=== PATIENT | female | born 1980 | race African-American/Black ===

== ENCOUNTER 2019-02-16 06:46 | Inpatient (IN) | payer OTHER ==
--- NOTE | 2019-02-10 11:02 | HPE ---
DATE OF ADMISSION: 02/16/2019 This lady is a 38-year-old, 3, para 1, who is admitted for elective repeat section because of previous history of a macrosomic 4.8 kg and scar integrity is unknown. Her past history is in April of 2017 at term a section because of macrosomia, hypertension, and there is no op report and no idea of integrity of the scar. In February of 2017, she had an early spontaneous at 8 weeks. Her medications are vitamins and ASA. She has NO KNOWN ALLERGIES. On examination today, symphysis fundus height is 38, vertex presenting. heart activity is noted. Incision is clean and dry. The rest the examination is unremarkable. She has a category 1 strip. Normocephalic, atraumatic. Neck full range of motion. Pupils equal and reactive to light. Distal pulses symmetric. No evidence of deep venous thrombosis (DVT), pulmonary embolism (PE), or superficial phlebitis. Chest is clear bilaterally to bases. No wheezes or rhonchi. No costovertebral angle (CVA) tenderness. Abdomen is soft. Four quadrant bowel sounds are noted. Incision is noted. She has no rashes, lesions, or pruritus. No arthralgia or myalgia. No complaint of joint pain. No complaint of cough, wheeze, shortness of breath, or dyspnea on exertion. No bleeding. Neuro complete. No incontinency, urgency, or frequency. No nausea, vomiting, diarrhea, or constipation. She has no diabetic issues. PAST GYNECOLOGICAL HISTORY: Unremarkable. FAMILY HISTORY: Noncontributory. SURGICAL HISTORY: section. She does not smoke, drink, abuse drugs. She is to a soldier. No domestic violence and good support. Her lab work shows that she is A+, HIV negative, hepatitis negative, RPR negative, rubella immune. Varicella immune. Urine is negative. Gonorrhea and Chlamydia are negative. 1-hour glucose was 71. GBS status is unknown at the present time. Her blood pressure today is 124/68, respirations are 18, pulse is 72, and she is afebrile. Her body mass index (BMI) is 24.0, and she has gained approximately 18 pounds in this . We discussed the risks and benefits of section including hemorrhage, infection, perforation, , reoperation, remote possibility of hysterectomy, remote possibility of laceration, remote possibility of entering the intensive care unit (NICU). The patient expressed understanding. Both her and agree, signed and witnessed the consent form. Patient is booked for elective repeat section 02/16/2019 at 0730 hours in the morning. All questions were answered. 40-minute discussion in both languages Trin[place] and Yoruba. BUTCH
[~2019-02-16] VITALS: Ht 162.6 cm; Wt 76.6 kg
[2019-02-16] VITALS (7 sets, daily range): BP systolic 122–129; BP diastolic 60–81
[~2019-02-16 06:46] MED LIST: PRENTAB55 PO
[2019-02-16] MEDS ORDERED: BICITRA 30ML SOLN UDC PO ONE (07:15)
[2019-02-16] MEDS ORDERED: AZITHROMYCIN INJ 500 MG, VIAL MATE ADAPTER 1 EACH in D5W 250 ML IV ONE (07:15)
[2019-02-16] MEDS ORDERED: LR 1,000 ML IV SCH ×2 (07:15→11:57)
[2019-02-16] MEDS ORDERED: BUPIVACAINE HCL 0.25% 10 ML VIAL SC ONE (07:15)
[2019-02-16] MEDS ORDERED: LR 1,000 ML IV ONE (07:15)
[2019-02-16] MEDS ORDERED: ACETAMINOPHEN 650 MG SUPP PR ONE (07:45)
[2019-02-16 08:41] LABS: HEMATOCRIT 35.6 % (36.0-47.0); HEMOGLOBIN 11.7 g/dl (12.0-15.5); MEAN CORPUSCULAR HEMOGLOBIN 31.2 pg (27.0-33.0); MEAN CORPUSCULAR HGB CONC 32.9 g/dl (32.0-36.5); MEAN CORPUSCULAR VOLUME 94.9 fl (80.0-96.0); PLATELET COUNT, AUTOMATED 145 10^3/uL (150-450); RED BLOOD COUNT 3.75 10^6/uL (4.00-5.40); WHITE BLOOD COUNT 6.1 10^3/uL (4.0-10.0)
[2019-02-16] MEDS ORDERED: OXYTOCIN INJ 10 UNITS/ML VIAL (J2590) As Ordered ONE (09:58)
[2019-02-16] MEDS ORDERED: dexameTHASONE 4 MG/ML 1ML VIAL (J1100) As Ordered ONE (09:58)
[2019-02-16] MEDS ORDERED: ONDANSETRON 4MG/2ML VIAL (J2405) As Ordered ONE (09:58)
[2019-02-16] MEDS ORDERED: fentaNYL 100 MCG/2 ML INJECTION (J3010) As Ordered ONE (09:59)
[2019-02-16] MEDS ORDERED: MORPHINE PRES-FREE INJ 10 MG/10 ML VIAL (J2274) As Ordered ONE (09:59)
[2019-02-16] MEDS ORDERED: NALOXONE INJ 0.4 MG/1 ML VIAL (J2310) IV PRN ×2 (10:36)
[2019-02-16] MEDS ORDERED: NALBUPHINE HCL 10 MG/ML AMP (J2300) IV PRN (10:36)
[2019-02-16] MEDS ORDERED: diphenhydrAMINE INJ 50MG/ML VIAL (J1200) IV PRN ×2 (10:36→12:30)
[2019-02-16] MEDS ORDERED: ONDANSETRON 4MG/2ML VIAL (J2405) IV PRN ×2 (10:36→12:30)
[2019-02-16] MEDS ORDERED: METOCLOPRAMIDE INJ 10MG/2ML VIAL (J2765) IV PRN (10:36)
[2019-02-16 11:25] LABS: CORD GAS ABE A -5.1; CORD GAS O2 SAT A 30.5 %; CORD GAS PCO2 A 86.8 mmHg; CORD GAS PH A 7.111 UNITS; CORD GAS PO2 A 21.8 mmHg; CORD GAS SBC A 18.7 MEQ/L; CORD GAS TCO2 A 29.7 MEQ/L
[2019-02-16 11:26] LABS: CORD GAS ABE V -6.2; CORD GAS HCO3 V 22.2 MEQ/L; CORD GAS O2 SAT V 65.1 %; CORD GAS PCO2 V 55.3 mmHg; CORD GAS PH V 7.222 UNITS; CORD GAS PO2 V 33.3 mmHg; CORD GAS SBC V 18.7 MEQ/L; CORD GAS TCO2 V 23.9 MEQ/L
[2019-02-16] MEDS ORDERED: ePHEDrine SULFATE 25 MG/5 ML(5MG/ML) SYRINGE As Ordered ONE (11:47)
[2019-02-16] MEDS ORDERED: OXYTOCIN DRIP 30 UNITS in APPROPRIATE DILUENT 1 EA IV SCH (11:57)
[2019-02-16] MEDS ORDERED: MOM 30ML SUSPENSION UDC PO PRN (12:00)
[2019-02-16] MEDS ORDERED: ANUSOL HC CREAM 30GM TOP PRN (12:00)
[2019-02-16] MEDS ORDERED: ACETAMINOPHEN 500 MG TAB PO PRN (12:00)
[2019-02-16] MEDS ORDERED: MEASLES,MUMPS,RUBELLA VACCINE INJ (MMR-II) (90707) SC SCH (12:00)
[2019-02-16] MEDS ORDERED: RHOGAM 300 MCG (1500 IU) INJ (J2790) IM SCH (12:00)
[2019-02-16] MEDS ORDERED: PERCOCET 5MG/325MG TAB PO PRN (12:00)
[2019-02-16] MEDS ORDERED: OXYTOCIN INJ 10 UNITS/ML VIAL (J2590) IV ONE (12:00)
[2019-02-16] MEDS ORDERED: DOCUSATE SODIUM 100 MG CAP PO PRN (12:00)
[2019-02-16] MEDS ORDERED: fentaNYL 100 MCG/2 ML INJECTION (J3010) IV PRN (12:30)
[2019-02-16] MEDS ORDERED: OXYTOCIN 30 UNITS IN 0.9% NaCl 500ML IV BAG (J2590) As Ordered ONE (12:52)
[2019-02-16] MEDS: KETOROLAC 30 MG/ML VIAL (J1885) IV SCH (18:26)
[2019-02-17] MEDS: KETOROLAC 30 MG/ML VIAL (J1885) IV SCH ×2 (00:28→06:03)
[2019-02-17 02:00] VITALS: BP 119/63
[2019-02-17 06:00] VITALS: BP 111/66
[2019-02-17 06:50] LABS: HEMATOCRIT 27.9 % (36.0-47.0); MEAN CORPUSCULAR HEMOGLOBIN 31.7 pg (27.0-33.0); MEAN CORPUSCULAR VOLUME 96.2 fl (80.0-96.0); PLATELET COUNT, AUTOMATED 115 10^3/uL (150-450); WHITE BLOOD COUNT 8.5 10^3/uL (4.0-10.0)
[2019-02-17 06:52] LABS: HEMOGLOBIN 9.2 g/dl (12.0-15.5)
[2019-02-17] MEDS: PRENATAL VITAMINS CHEWABLE TABLET PO SCH (07:57)
[2019-02-17] MEDS: PERCOCET 5MG/325MG TAB PO PRN ×3 (07:57→18:31)
[2019-02-17] MEDS ORDERED: ADACEL/BOOSTRIX VACCINE (DIPHTH/PERTUSS/ACELL/TETANUS)0.5ML SYR (90715) IM ONE (09:00)
[2019-02-17 10:00] VITALS: BP 118/56
[2019-02-17 14:00] VITALS: BP 113/65
[2019-02-17] MEDS ORDERED: IBUPROFEN 800 MG TAB PO SCH (14:00)
[2019-02-17 18:00] VITALS: BP 121/58
[2019-02-17] MEDS: IBUPROFEN 800 MG TAB PO PRN (19:39)
[2019-02-17 22:03] VITALS: BP 123/74
[2019-02-18 02:23] VITALS: BP 125/65
[2019-02-18] MEDS: IBUPROFEN 800 MG TAB PO PRN (06:18)
[2019-02-18 06:46] VITALS: BP 120/75
--- NOTE | 2019-02-18 07:03 | DS.PDOC ---
Discharge Summary General Date of Admission Feb 16, 2019 at 06:46 Date of Discharge [id number] Discharge Summary ADMITTING DIAGNOSES: Scheduled DISCHARGE DIAGNOSES: [facility] COURSE: delivery uncomplicated. course uncomplicated other than urinary retention needing manuel replacement. Now resolved DISCHARGE MEDICATIONS: Motrin, Lanolin, Percocet, Colace DISCHARGE INSTRUCTIONS: Nothing in the vagina for 6 weeks. No driving for 2 weeks. No bathing for 4 weeks, shower only. F/U in OBGYN clinic in 1-2 weeks for incision check and routine follow-up in 6-8 weeks. Sessions Vital Signs/I&Os Vital Signs Date Time Temp Pulse Resp B/P (MAP) Pulse Ox O2 Delivery O2 Flow Rate FiO2 02/18/19 06:46 98.4 88 18 120/75 (90) 02/17/19 18:00 99 I&O- Last 24 Hours up to 6 AM 02/18/19 06:00 Output Total 1100 ml Balance -1100 ml Discharge Medications Scheduled [id number]/Iron Fum/Folic/Docusate ( 19 Tablet) 1 Each Tablet, 1 TAB PO DAILY, (Reported) Allergies Coded Allergies: No Known Allergies (Unverified , 02/16/19) SESSIONS,GRETTA Pretty MD Feb 18, 2019 07:03
--- NOTE | 2019-02-18 07:05 | IPNPDOC ---
Text Note Date of Service The patient was seen on 02/18/19. NOTE POD2 RCS, now ~48 hours States feeling well, pain controlled with prescribed meds. Baby bonding and feeding well. No heavy VB. Lochia slowing. Ambulatory. Tolerating PO without issues. Villavicencio out and voided x3 overnight, UO adequate. VSSAF NAD A&O RRR CTAB LE no C/C/E Ut at U-2, [employer] with quarter sized blood stain on right aspect of bandage, old and not increased in size from yesterday AM CBC yesterday AM stable a/p: Doing well. Cont routine postop care. D/C today. Sessions VSNelsy, I+O VSNelsy I+O Vital Signs Date Time Temp Pulse Resp B/P (MAP) Pulse Ox O2 Delivery O2 Flow Rate FiO2 02/18/19 06:46 98.4 88 18 120/75 (90) 02/17/19 18:00 99 I&O- Last 24 Hours up to 6 AM 02/18/19 06:00 Output Total 1100 ml Balance -1100 ml SESSIONS,GRETTA Pretty MD Feb 18, 2019 07:05
[2019-02-18] MEDS ORDERED: ACET-683 PO (07:08)
[2019-02-18] MEDS ORDERED: COLA100C5 PO (07:08)
[2019-02-18] MEDS ORDERED: PERCOCET PO (07:08)
[2019-02-18] MEDS ORDERED: IBUP80TA PO (07:08)
[2019-02-18] MEDS: PRENATAL VITAMINS CHEWABLE TABLET PO SCH (07:46)
[2019-02-18] MEDS: PERCOCET 5MG/325MG TAB PO PRN ×2 (07:48→12:08)
[2019-02-18] MEDS ORDERED: ADACEL/BOOSTRIX VACCINE (DIPHTH/PERTUSS/ACELL/TETANUS)0.5ML SYR (90715) IM ONE (09:00)
--- NOTE | 2019-02-19 17:59 | RO ---
DATE OF PROCEDURE: 02/16/2019 PREOPERATIVE DIAGNOSIS: Repeat section, unknown section scar. POSTOPERATIVE DIAGNOSIS: Polyhydramnios, uterine window right side, repeat section. OPERATION PERFORMED: Repeat section. SURGEON: Dr. Ishaan Ceja CERAMIC SPRAYER: Dr. Yoder for extraction, retraction and visualization. ANESTHESIA: Spinal plus local anesthetic for intraperitoneal procedures. ESTIMATED BLOOD LOSS: 300 mL. DESCRIPTION OF PROCEDURE: After adequate time-out, prepped and draped in the supine position, Villavicencio catheter in the bladder draining clear urine, sequentials on the patient, acetaminophen suppository 1300 mg per rectum, appropriate antibiotics preoperatively, passing through the previous Pfannenstiel incision, passing through the abdominal layers, securing hemostasis. Opening the peritoneal cavity, the bladder was quite high up anteriorly and on the right side, there was a uterine window of about 3 cm where we could visualize the amniotic fluid and the hair of the baby. We just extended that out to the left and ARM draining clear liquor, approximately 800 mL of amniotic fluid. We delivered a live female , 3140 grams, 6 pounds 15 ounces, scores of 8 and 9 at one and five minutes respectively. Placenta was manually removed, three vessels in the cord. Membranes and tissues intact. The uterus contracted well down on Pitocin. We swept the uterine cavity times two. No evidence of membranes or tissue. The lower segment was oversewn in two layers, imbricating the second layer and repairing the defect on the right side. With instrument and pad count correct, we lavaged out any excess clots. Abdomen was then closed, running stitch for the peritoneum, same for the fascia, interrupted for subcu, Dexon to the skin, Marcaine 0.25% 10 mL, spray and tape, and the patient was sent to recovery in good condition.
== END 2019-02-18 12:20 | disposition home or self-care (01) | DRG 773 ==
LOC: M LDI 06:46 → M OBS 13:45
PROVIDERS: ADMIT Obstetrics & Gynecology; ATTEND Obstetrics & Gynecology
PROC: 10D00Z1 Extraction of Products of Conception, Low, Open Approach (ICD-10-PCS; principal; 2019-02-17)
DX: O99.824 Streptococcus B carrier state complicating childbirth (principal); Z3A.38 38 weeks gestation of pregnancy; Z37.0 Single live birth; O34.211 Maternal care for low transverse scar from previous cesarean delivery; O40.3XX0 Polyhydramnios, third trimester, not applicable or unspecified; O99.89 Other specified diseases and conditions complicating pregnancy, childbirth and the puerperium; R33.9 Retention of urine, unspecified

== ENCOUNTER → 2021-10-05 | Outpatient (REF) ==
[~2021-10-05] MED LIST changes: +ACET-683 PO; +COLA100C5 PO; +IBUP80TA PO; +PERCOCET PO
[2021-10-08 16:11] LABS: RUBEOLA IgG ANTIBODY >300.0 AU/mL (Immune >16.4)
== END ==
LOC: M LAB 16:23
PROVIDERS: ATTEND Nurse Practitioner Adult Health
DX: Z02.89 Encounter for other administrative examinations (principal)

== ENCOUNTER 2022-03-07 22:39 | Observation (INO) | payer OTHER ==
[~2022-03-07] VITALS: Ht 162.6 cm; Wt 65.1 kg
[2022-03-08] VITALS (7 sets, daily range): BP systolic 127–155; BP diastolic 69–94
[2022-03-08 03:49] LABS: BASO % 0.2 % (0.0-1.0); EOS % 0.4 % (0.0-3.0); HEMATOCRIT 20.5 % (36.0-47.0); HEMOGLOBIN 5.3 g/dl (12.0-15.5); LYMPH # 1.4 10^3/uL (1.5-5.0); LYMPH % 17.1 % (24.0-44.0); MEAN CORPUSCULAR HEMOGLOBIN 15.8 pg (27.0-33.0); MEAN CORPUSCULAR HGB CONC 25.9 g/dl (32.0-36.5); MEAN CORPUSCULAR VOLUME 61.2 fl (80.0-96.0); MONO # 0.3 10^3/uL (0.0-0.8); NEUTROPHILS # 6.4 10^3/uL (1.5-8.5); NEUTROPHILS % 77.8 % (36.0-66.0); PLATELET COUNT, AUTOMATED 267 10^3/uL (150-450); RED BLOOD COUNT 3.35 10^6/uL (4.00-5.40); WHITE BLOOD COUNT 8.2 10^3/uL (4.0-10.0)
[2022-03-08 04:37] LABS: BLOOD UREA NITROGEN 9 MG/DL (7-18); CALCIUM LEVEL 8.5 MG/DL (8.5-10.1); CARBON DIOXIDE LEVEL 27 MEQ/L (21-32); CHLORIDE LEVEL 111 MEQ/L (98-107); GLOMERULAR FILTRATION RATE > 60.0 (>58); GLUCOSE, FASTING 101 MG/DL (70-100); POTASSIUM SERUM 4.2 MEQ/L (3.5-5.1); SODIUM LEVEL 141 MEQ/L (136-145)
[2022-03-08 04:38] LABS: BASO % 0.2 % (0.0-1.0); EOS % 0.5 % (0.0-3.0); LYMPH # 1.8 10^3/uL (1.5-5.0); LYMPH % 21.9 % (24.0-44.0); MEAN CORPUSCULAR HEMOGLOBIN 15.8 pg (27.0-33.0); MEAN CORPUSCULAR HGB CONC 25.6 g/dl (32.0-36.5); MEAN CORPUSCULAR VOLUME 61.8 fl (80.0-96.0); MONO # 0.3 10^3/uL (0.0-0.8); MONO % 4.1 % (2.0-8.0); NEUTROPHILS % 72.9 % (36.0-66.0); PLATELET COUNT, AUTOMATED 265 10^3/uL (150-450); RED BLOOD COUNT 3.35 10^6/uL (4.00-5.40); WHITE BLOOD COUNT 8.2 10^3/uL (4.0-10.0)
[2022-03-08 04:39] LABS: HEMATOCRIT 20.7 % (36.0-47.0); HEMOGLOBIN 5.3 g/dl (12.0-15.5)
[2022-03-08 04:49] LABS: INR 1.25; PROTHROMBIN TIME 16.2 SECONDS (12.7-14.5)
[2022-03-08 05:03] LABS: BLOOD UREA NITROGEN 9 MG/DL (7-18); CALCIUM LEVEL 8.9 MG/DL (8.5-10.1); CARBON DIOXIDE LEVEL 27 MEQ/L (21-32); CHLORIDE LEVEL 110 MEQ/L (98-107); CREATININE FOR GFR 0.61 MG/DL (0.55-1.30); GLOMERULAR FILTRATION RATE > 60.0 (>58); GLUCOSE, FASTING 103 MG/DL (70-100); POTASSIUM SERUM 3.9 MEQ/L (3.5-5.1); SODIUM LEVEL 140 MEQ/L (136-145)
[2022-03-08 05:08] LABS: CK-MB VALUE MASS < 1.0 NG/ML (<3.6); CPK CREATINE PHOSPHOKINASE 85 U/L (26-192); MB/CK RELATIVE INDEX 1.18 (< OR =4)
[2022-03-08 07:12] LABS: RSV AMPLIFICATION NEGATIVE (NEGATIVE)
[2022-03-08] MEDS ORDERED: HOME MED LIST COMPLETE! XX SCH (07:50)
[2022-03-08 12:04] LABS: HEMATOCRIT 25.1 % (36.0-47.0); HEMOGLOBIN 7.2 g/dl (12.0-15.5); MEAN CORPUSCULAR HEMOGLOBIN 19.3 pg (27.0-33.0); MEAN CORPUSCULAR HGB CONC 28.7 g/dl (32.0-36.5); MEAN CORPUSCULAR VOLUME 67.3 fl (80.0-96.0); PLATELET COUNT, AUTOMATED 214 10^3/uL (150-450); RED BLOOD COUNT 3.73 10^6/uL (4.00-5.40); WHITE BLOOD COUNT 7.2 10^3/uL (4.0-10.0)
[2022-03-08 12:18] LABS: INR 1.3; PROTHROMBIN TIME 16.7 SECONDS (12.7-14.5)
[2022-03-08 12:19] LABS: PARTIAL THROMBOPLASTIN TIME 29.4 SECONDS (25.9-37.0)
[2022-03-08 13:17] LABS: ALBUMIN 3.4 GM/DL (3.2-5.2); ALT/SGPT 23 U/L (12-78); BILIRUBIN,TOTAL 1.5 MG/DL (0.2-1.0); BLOOD UREA NITROGEN 8 MG/DL (7-18); CALCIUM LEVEL 8.5 MG/DL (8.5-10.1); CARBON DIOXIDE LEVEL 24 MEQ/L (21-32); CHLORIDE LEVEL 112 MEQ/L (98-107); CREATININE FOR GFR 0.63 MG/DL (0.55-1.30); FERRITIN < 3 NG/ML (8-252); GLOMERULAR FILTRATION RATE > 60.0 (>58); GLUCOSE, FASTING 93 MG/DL (70-100); IRON (FE) 207 UG/DL (50-170); PERCENT SATURATION 57.8 % (13.2-45.0); SODIUM LEVEL 141 MEQ/L (136-145); TOTAL IRON BINDING CAPACITY 358 UG/DL (250-450); TOTAL PROTEIN 6.3 GM/DL (6.4-8.2)
[2022-03-08 15:34] LABS: PROTHROMBIN TIME 16.7 SECONDS (12.7-14.5)
[2022-03-08 15:38] LABS: PT 1:2 SUBSTITUTION 14.6 SECONDS
[2022-03-09] VITALS (7 sets, daily range): BP systolic 132–135; BP diastolic 80–88
[2022-03-09 06:13] LABS: HEMATOCRIT 24.9 % (36.0-47.0); HEMOGLOBIN 7.1 g/dl (12.0-15.5); MEAN CORPUSCULAR HGB CONC 28.5 g/dl (32.0-36.5); MEAN CORPUSCULAR VOLUME 66.8 fl (80.0-96.0); PLATELET COUNT, AUTOMATED 217 10^3/uL (150-450); RED BLOOD COUNT 3.73 10^6/uL (4.00-5.40)
[2022-03-09 06:43] LABS: ALBUMIN 3.2 GM/DL (3.2-5.2); ALT/SGPT 19 U/L (12-78); BILIRUBIN,TOTAL 0.4 MG/DL (0.2-1.0); BLOOD UREA NITROGEN 8 MG/DL (7-18); CALCIUM LEVEL 8.2 MG/DL (8.5-10.1); CARBON DIOXIDE LEVEL 26 MEQ/L (21-32); CHLORIDE LEVEL 114 MEQ/L (98-107); GLOMERULAR FILTRATION RATE > 60.0 (>58); GLUCOSE, FASTING 106 MG/DL (70-100); POTASSIUM SERUM 4.3 MEQ/L (3.5-5.1); SODIUM LEVEL 146 MEQ/L (136-145); TOTAL PROTEIN 6.1 GM/DL (6.4-8.2)
[2022-03-09 14:52] LABS: HEMATOCRIT 28.7 % (36.0-47.0); HEMOGLOBIN 8.3 g/dl (12.0-15.5); MEAN CORPUSCULAR HEMOGLOBIN 19.9 pg (27.0-33.0); MEAN CORPUSCULAR HGB CONC 28.9 g/dl (32.0-36.5); MEAN CORPUSCULAR VOLUME 68.8 fl (80.0-96.0); PLATELET COUNT, AUTOMATED 213 10^3/uL (150-450); RED BLOOD COUNT 4.17 10^6/uL (4.00-5.40); WHITE BLOOD COUNT 6.9 10^3/uL (4.0-10.0)
[2022-03-09 15:15] LABS: PERCENT SATURATION 14.2 % (13.2-45.0)
[2022-03-09] MEDS ORDERED: FERR325T3 PO (18:37)
[2022-03-09 20:11] LABS: HEMATOCRIT 27.9 % (36.0-47.0); HEMOGLOBIN 8.2 g/dl (12.0-15.5); MEAN CORPUSCULAR HEMOGLOBIN 20.4 pg (27.0-33.0); MEAN CORPUSCULAR HGB CONC 29.4 g/dl (32.0-36.5); MEAN CORPUSCULAR VOLUME 69.4 fl (80.0-96.0); RED BLOOD COUNT 4.02 10^6/uL (4.00-5.40); WHITE BLOOD COUNT 7.8 10^3/uL (4.0-10.0)
== END 2022-03-09 21:50 | disposition home or self-care (01) ==
LOC: M ED 22:39 → M ED INP 22:40 → ENRESERV 03-08 12:38 → M MSPAV 03-08 15:11
PROVIDERS: ADMIT Student in an Organized Health Care Education/Training Program; ATTEND Student in an Organized Health Care Education/Training Program
DX: D50.9 Iron deficiency anemia, unspecified (principal); R55 Syncope and collapse; R79.1 Abnormal coagulation profile
CPT/HCPCS: 36415; 36430; 71045; 80048; 80053; 82550; 82553; 82728; 83550; 84443; 84484; 85025; 85027; 85230; 85610; 85611; 85730; 86258; 86850; 86900; 86901; 86920; 87631; 93005; 93041; 94760; 99285; P9016